=== PATIENT | female | born 1995 | race African-American/Black ===

== ENCOUNTER 2018-07-25 12:25 | Emergency (ER) | payer MEDICAID ==
[~2018-07-25] VITALS: Ht 157.5 cm; Wt 52.2 kg
--- NOTE | 2018-07-25 12:33 | NUR ---
is at bedside doing the MSE.
--- NOTE | 2018-07-25 12:41 | NUR ---
URINE COLLECTED AND SENT TO LAB.
[2018-07-25 12:45] LABS: *URINE HCG, QUAL NEGATIVE (NEGATIVE)
[2018-07-25] MEDS ORDERED: IPRATROPIUM BROMIDE 0.5 MG/2.5 ML NEBU NEB ONE (12:45)
[2018-07-25] MEDS ORDERED: ALBUTEROL SULFATE 2.5 MG/3 ML NEBU NEB ONE (12:45)
--- NOTE | 2018-07-25 12:47 | NUR ---
Patient is refusing neb treatment at [facility] notified.
--- NOTE | 2018-07-25 12:55 | NUR ---
Patient discharged to home in stable conditon & brisk steady gait. Written and verbal after care instructions given to patient. Patient verbalizes understanding of instructions.
[2018-07-25] MEDS ORDERED: predniSONE 20 MG TABLET PO ONE (13:00)
[2018-07-25] MEDS ORDERED: ALBUTEROL SULFATE 2.5 MG/3 ML NEBU ONE (13:43)
[2018-07-25] MEDS ORDERED: IPRATROPIUM BROMIDE 0.5 MG/2.5 ML NEBU ONE (13:44)
[2018-07-25] MEDS ORDERED: predniSONE 50 MG TABLET ONE (13:52)
[2018-07-25] MEDS ORDERED: predniSONE 10 MG TABLET ONE (13:52)
== END 2018-07-25 12:56 | disposition home or self-care (01) ==
LOC: ER 12:25
DX: J45.909 Unspecified asthma, uncomplicated (principal)
CPT/HCPCS: 84703; 99283; J7512 ×2; A4663; J3590

== ENCOUNTER 2018-12-02 09:44 | Emergency (ER) | payer MEDICAID, OTHER ==
[~2018-12-02] VITALS: Ht 167.6 cm; Wt 55.8 kg
--- NOTE | 2018-12-02 09:49 | NUR ---
DR Richter at the bedside for MSE.
--- NOTE | 2018-12-02 10:04 | NUR ---
Patient discharged to home in stable conditon. Written and verbal after care instructions given. Patient verbalizes understanding of instructions.
[2018-12-02 10:05] VITALS: BP 126/71
== END 2018-12-02 10:08 | disposition home or self-care (01) ==
LOC: ER 09:44
DX: H66.91 Otitis media, unspecified, right ear (principal); J45.909 Unspecified asthma, uncomplicated
CPT/HCPCS: A4663